=== PATIENT | male | born 1995 | race African-American/Black ===

== ENCOUNTER 2018-04-18 08:48 | Emergency (ER) | payer OTHER ==
[~2018-04-18] VITALS: Ht 165.1 cm; Wt 64.5 kg
[2018-04-18] MEDS ORDERED: FIBE625T PO (08:54)
[2018-04-18] MEDS ORDERED: COLA100C5 PO ×2 (08:54→10:33)
[2018-04-18] MEDS ORDERED: DOCUSATE SODIUM 100 MG CAP PO ONE (10:15)
[2018-04-18 10:32] VITALS: BP 118/60
--- NOTE | 2018-04-18 14:50 | ECGEPIP ---
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
== END 2018-04-18 10:40 | disposition home or self-care (01) ==
LOC: M ED 08:48
DX: R55 Syncope and collapse (principal); K59.00 Constipation, unspecified; R10.32 Left lower quadrant pain

== ENCOUNTER 2018-04-27 14:18 | Emergency (ER) | payer OTHER ==
[~2018-04-27] VITALS: Ht 165.1 cm; Wt 6.3 kg
[~2018-04-27 14:18] MED LIST: COLA100C5 PO; FIBE625T PO
--- NOTE | 2018-04-27 15:28 | REP ---
ABDOMEN FLAT AND UPRIGHT PA CHEST, THREE VIEWS: HISTORY: Constipation. Air is present in small and large intestine. There are no air fluid levels or dilated loops of intestine. There is no pneumoperitoneum. A mild amount of stool is present in the colon. IMPRESSION: Nonspecific bowel gas pattern. Electronically Signed by Last Ferreira MD 04/27/2018 03:32 P
[2018-04-27] MEDS ORDERED: BISACODYL 10 MG SUPP PR ONE (16:15)
[2018-04-27] MEDS ORDERED: MIRA3350 PO (17:54)
[2018-04-27] MEDS ORDERED: COLA100C5 PO (17:54)
[2018-04-27] MEDS ORDERED: DULC10SU2 PR (17:54)
[2018-04-27 17:58] VITALS: BP 119/56
[2018-04-27] MEDS ORDERED: MAGNESIUM CITRATE 300 ML BTL PO ONE (18:00)
== END 2018-04-27 18:03 | disposition home or self-care (01) ==
LOC: M ED 14:18
DX: K59.00 Constipation, unspecified (principal)

== ENCOUNTER 2018-12-22 14:15 | Emergency (ER) | payer OTHER ==
[~2018-12-22] VITALS: Ht 165.1 cm; Wt 65.0 kg
[~2018-12-22 14:15] MED LIST changes: +DULC10SU2 PR; +MIRA3350 PO
[2018-12-22 15:21] LABS: BASO % 0.4 % (0.0-1.0); EOS # 0.1 10^3/uL (0.0-0.5); EOS % 1.1 % (0.0-3.0); HEMATOCRIT 40.1 % (42.0-52.0); HEMOGLOBIN 13.4 g/dl (13.5-17.5); LYMPH # 2.6 10^3/uL (1.5-5.0); LYMPH % 56.5 % (24.0-44.0); MEAN CORPUSCULAR HEMOGLOBIN 22.5 pg (27.0-33.0); MEAN CORPUSCULAR HGB CONC 33.4 g/dl (32.0-36.5); MEAN CORPUSCULAR VOLUME 67.4 fl (80.0-96.0); MONO # 0.4 10^3/uL (0.0-0.8); MONO % 7.8 % (0.0-5.0); NEUTROPHILS # 1.5 10^3/uL (1.5-8.5); NEUTROPHILS % 34.2 % (36.0-66.0); PLATELET COUNT, AUTOMATED 226 10^3/uL (150-450); RED BLOOD COUNT 5.95 10^6/uL (4.30-6.10); WHITE BLOOD COUNT 4.5 10^3/uL (4.0-10.0)
--- NOTE | 2018-12-22 15:29 | REP ---
Acute abdominal series three views including PA chest and supine upright abdomen: Comparison is 04/27/2018. PA chest: Lung julian are clear. Cardiac size is normal. The gideon, mediastinum, skeletal structures are unremarkable. There is no free subdiaphragmatic air. Impression: Negative PA chest. There is no interval change. Abdomen, supine upright views: There are occasional air-fluid levels in nondistended bowel loops. Bowel gas pattern is nonspecific. There is no bowel distension or obstruction at this time. There are no calcifications. Skeletal structures and soft tissues are otherwise unremarkable. Impression: Nonspecific bowel gas pattern. Electronically Signed by Donnie Lomax MD 12/22/2018 03:21 P
[2018-12-22 15:34] LABS: ALBUMIN 3.9 GM/DL (3.2-5.2); ALT/SGPT 40 U/L (12-78); BILIRUBIN,DIRECT 0.1 MG/DL (0.0-0.2); BILIRUBIN,TOTAL 0.4 MG/DL (0.2-1.0); LIPASE 209 U/L (73-393)
[2018-12-22 15:55] LABS: BLOOD UREA NITROGEN 9 MG/DL (7-18); CALCIUM LEVEL 8.8 MG/DL (8.5-10.1); CARBON DIOXIDE LEVEL 26 MEQ/L (21-32); CHLORIDE LEVEL 102 MEQ/L (98-107); CREATININE FOR GFR 0.82 MG/DL (0.70-1.30); GLOMERULAR FILTRATION RATE > 60.0 (>60); GLUCOSE, FASTING 65 MG/DL (70-100); SODIUM LEVEL 136 MEQ/L (136-145)
[2018-12-22] MEDS ORDERED: COLA100C5 PO (16:07)
[2018-12-22 16:23] VITALS: BP 132/93
== END 2018-12-22 16:26 | disposition home or self-care (01) ==
LOC: M ED 14:15
DX: K59.9 Functional intestinal disorder, unspecified (principal)

== ENCOUNTER 2018-12-28 12:43 | Emergency (ER) | payer OTHER ==
[~2018-12-28] VITALS: Ht 165.1 cm; Wt 66.7 kg
[2018-12-28] MEDS ORDERED: MIRA3350 PO (12:49)
[2018-12-28] MEDS ORDERED: DULC10SU2 PR (12:49)
[2018-12-28 14:43] VITALS: BP 125/80
--- NOTE | 2018-12-28 14:52 | REP ---
KUB: Single view. History: Constipation. Comparison abdominal films from December 22, 2018. Findings: There is some formed stool in the ascending colon, hepatic flexure colon and splenic flexure colon segments. No colonic distension is seen. No small bowel dilation is seen. Psoas margins and flank stripes are intact. No mass or organomegaly is seen. Impression: Normal bowel gas pattern. Some formed stool in the right and left colon. No large or small bowel distension. Electronically Signed by Amari Werner MD 12/28/2018 03:37 P
== END 2018-12-28 14:55 | disposition home or self-care (01) ==
LOC: M ED 12:43
DX: K59.00 Constipation, unspecified (principal)

== ENCOUNTER 2019-01-09 15:29 | Inpatient (IN) | payer OTHER ==
[~2019-01-09] VITALS: Ht 195.6 cm; Wt 62.0 kg
[2019-01-09 16:33] LABS: HEMATOCRIT 40.2 % (42.0-52.0); HEMOGLOBIN 13.3 g/dl (13.5-17.5); MEAN CORPUSCULAR HEMOGLOBIN 22.7 pg (27.0-33.0); MEAN CORPUSCULAR HGB CONC 33.1 g/dl (32.0-36.5); MEAN CORPUSCULAR VOLUME 68.5 fl (80.0-96.0); PLATELET COUNT, AUTOMATED 201 10^3/uL (150-450); RED BLOOD COUNT 5.87 10^6/uL (4.30-6.10); WHITE BLOOD COUNT 4.5 10^3/uL (4.0-10.0)
[2019-01-09 17:16] LABS: ACETAMINOPHEN LEVEL < 2.0 UG/ML (10.0-30.0); ALBUMIN 3.7 GM/DL (3.2-5.2); ALT/SGPT 74 U/L (12-78); BILIRUBIN,DIRECT < 0.1 MG/DL (0.0-0.2); BILIRUBIN,TOTAL 0.1 MG/DL (0.2-1.0); BLOOD UREA NITROGEN 8 MG/DL (7-18); CALCIUM LEVEL 8.6 MG/DL (8.5-10.1); CARBON DIOXIDE LEVEL 27 MEQ/L (21-32); CHLORIDE LEVEL 106 MEQ/L (98-107); CREATININE FOR GFR 0.76 MG/DL (0.70-1.30); ETHYL ALCOHOL (ETHANOL) < 0.003 % (0.000-0.010); GLOMERULAR FILTRATION RATE > 60.0 (>60); GLUCOSE, FASTING 90 MG/DL (70-100); POTASSIUM SERUM 4.3 MEQ/L (3.5-5.1); SALICYLATE LEVEL < 1.7 MG/DL (5.0-30.0); SODIUM LEVEL 141 MEQ/L (136-145)
[2019-01-09 18:40] LABS: AMPHETAMINES LEVEL URINE NEGATIVE (NEGATIVE); BARBITURATES URINE NEGATIVE (NEGATIVE); BENZODIAZEPINES URINE NEGATIVE (NEGATIVE); CANNABINOIDS URINE NEGATIVE (NEGATIVE); COCAINE METABOLITE URINE NEGATIVE (NEGATIVE); METHADONE URINE NEGATIVE (NEGATIVE); OPIATES URINE NEGATIVE (NEGATIVE); PHENCYCLIDINE URINE NEGATIVE (NEGATIVE)
[2019-01-09] MEDS ORDERED: DOCU100C16 PO (19:13)
[2019-01-09] MEDS ORDERED: MIRALAX *UNIT DOSE* 17GM PACKET PO PRN (19:15)
[2019-01-09] MEDS ORDERED: traZODone 50 MG TAB PO PRN (19:15)
[2019-01-09] MEDS ORDERED: ACETAMINOPHEN TAB 650MG DOSE (2X325MG) PO PRN (19:15)
[2019-01-09] MEDS ORDERED: DOCUSATE SODIUM 100 MG CAP PO PRN (19:15)
[2019-01-09] MEDS ORDERED: MAALOX 30 ML SUSP *UDC PO PRN (19:15)
[2019-01-10 00:50] VITALS: BP 122/82
--- NOTE | 2019-01-10 10:58 | MHHPEPDOC ---
General Date Of Admission: Jan 09, 2019 Legal Status: 9.39 Chief Complaint "I'm feeling suicidal". History of Present Illness HISTORY OF THE PRESENT ILLNESS: Patient is a 23 -year-old male, AD, with no previous psych history who was sent with his Emma after being seen at [facility] expressing SI with plan to OD. Per ED, pt stated that he was depressed with SI for approximately the past 3yrs secondary to psychosocial stressors of having no friends at , no contact with family in [place] (pt born in [place], raised all over the world, came to [facility] from [place]), and ongoing medical condition (chronic constipation) for the past few years. Per ED, pt already scheduled outpatient appts with specialist at [facility] and [place] for evaluation and treatment of chronic constipation. Per ED, pt told ED display mechanic the he had a plan for SI thru OD and that he had even gone to stores looking for a medication to OD on the would not cause him harm. pt also endorsed insomnia and poor appetite in ED Psychiatric Review of Systems Depression (2 or more weeks): depressed mood, insomnia/hypersomnia (insomnia), difficulty concentrating, appetite changes, suicidal thoughts Loli (4 or more days of): denies Psychosis: denies Anxiety: situational anxiety, stressor related anxiety Anxiety/ 6 months or more of: difficulty concentrating Past Psychiatric History Previous Psychiatric Diagnosis: denies Previous Psychiatric Admissions: denies Suicide Attempts: denies Psychiatric Follow-up: denies Psychiatric medications: denies Past Medical History Medical Problems chronic constipation with evaluation and treatment at [facility] and [place] scheduled already per ED Head Injury: No Seizures: No Hospitalizations: No Surgeries: No Family Medical/Psychiatric HX Medical Problems noncontributory Psychiatric Disorders: No Addiction: No Suicide Attemps/Completions: No Addiction History denies Social History Childhood: pt born in [place], raised all over the world, came to [facility] from [place]. 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 Social Support: no one Legal: denies Marital: single, never , no kids Mental Status Examination General Appearance: well groomed, appears stated age, hospital scubs/clothing, other (walking with crunches b/c knee hurt) Build: average Demeanor: withdrawn, guarded, other (disappointed) Eye Contact: fair Activity: anxious Behavior: cooperative Speech: normal volume, reg/rate,rhythm,volume, other ( Accent) Mood: depressed, anxious, irritable Mood depressed Affect: constricted, congruent, anxious, other (annoyed) Thought Process: logical/linear, depressed, intact Thought Content (Delusions): denies SI, HI, AVH Thought Content (Other): preoccupied (constipation and BM), obsessional (constipation) Thought Content (Aggressive): none reported Perception (Hallucinations): none reported Perception (Other): none reported Cognition (Impairment of): none reported Cognition(Intelligence Est.): average Oriented: Awake, Alert, Oriented times three Insight: poor Judgment: Poor Psychosis: Denies Diagnoses Unspecified Depression R/o Adjustment d/o with depressed mood R/o Depression due to [facility] chronic constipation R/o eating d/o (stimulant laxative overuse) A-FIB/CHADSVASC A-FIB History Current/History of A-Fib/PAF?: No Assessment Pt seen and states he's been feeling suicidal for approx the past 2yrs due to his chronic constipation with stomach pain, uncomfortable, bloating. States he takes colace daily and occasionally MOM to have a BM that may take minutes for him to pass initially but not completely so he lays down and waits until he feels he can complete his BM. States he's had a colonoscopy (wnl), endoscopy(wnl), miomectromy of colon (found to be "slow." Also takes laxatives daily for the past use with increase use over the past 2yrs. States his main reason for coming to the hospital was to get treatment for his chronic constipation. 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 Pt does admit to extreme o veruse of multiple stimulant laxatives thru out the day and explained to pt that this is mostly likely the cause of his stomach pain/bloating and constipation and to stop abdominal problems he would need to ween off stimulant laxatives for intestinal/colon/anal symptoms to return to normal function. Seemed annoyed that I didn't have a "magic" treatment or pill he could take to make everything to go away. Advised unfortunately not. Encouraged to particiate in groups daily to learn coping skills for current stressor. Does not appear to need antidepressant as appears to adjustment/secondary C depression that would be resolved thru treatment of chronic constipation. Denies currently SI/HI, hallucinations, delusions. Feels safe here. Initial Treatment Plan 1. Patient was admitted on a 9.39 status. 2. Complete history was obtained. 3. With patients permission, family will be contacted and database will be expanded. 4. Patients medication regimen will be reviewed and changed accordingly. 5. Patient will be provided with protected environment. 6. Patient will be treated with individual, group, and milieu therapies. 7. Patient will receive supportive psych-education. 8. Discharge planning will commence immediately. 9. Outpatient follow-up treatment will be strongly recommended. 10. The initial treatment plan will focus initially on: * Depression. * Risk for suicide. 11. vistaril prn anxiety. limit doculax use to bid prn constipation ESTIMATED LENGTH OF STAY: 5-7 DAYS. TIME SPENT COUNSELING AND COORDINATING INITIAL CARE: 60 minutes. Vital Signs Vital Signs Date Time Temp Pulse Resp B/P (MAP) Pulse Ox O2 Delivery O2 Flow Rate FiO2 01/10/19 00:50 97.7 58 12 122/82 (95) 99 01/09/19 20:42 Room Air Laboratory Data 24H Labs Laboratory Tests 2 01/09/19 16:20: Nucleated Red Blood Cells % (auto) 0.0, Anion Gap 8, Glomerular Filtration Rate > 60.0, Calcium Level 8.6, Aspartate Amino Transf (AST/SGOT) 64H, Alanine Aminotransferase (ALT/SGPT) 74, Alkaline Phosphatase 87, Total Bilirubin 0.1L, Direct Bilirubin < 0.1, Total Protein 7.0, Albumin 3.7, Albumin/Globulin Ratio 1.12, Thyroid Stimulating Hormone (TSH) 1.910, Salicylates Level < 1.7L, Acetaminophen Level < 2.0L, Ethyl Alcohol Level < 0.003 01/09/19 17:54: Urine Amphetamines Screen NEGATIVE, Urine Benzodiazepines Screen NEGATIVE, Urine Opiates Screen NEGATIVE, Urine Methadone Screen NEGATIVE, Urine Barbiturates Screen NEGATIVE, Urine Phencyclidine Screen NEGATIVE, Urine Cocaine Metabolite Screen NEGATIVE, Urine Cannabinoids Screen NEGATIVE CBC/BMP Laboratory Tests 01/09/19 16:20 Red Blood Count 5.87, Mean Corpuscular Volume 68.5 L, Mean Corpuscular Hemoglobin 22.7 L, Mean Corpuscular Hemoglobin Concent 33.1, Red Cell Di stribution Width 14.6 H Medications Scheduled PRN Bisacodyl (Dulcolax) 10 Mg Supp.rect, 10 MG ME DAILY PRN for CONSTIPATION, (Reported) Docusate Sodium (Docusate Sodium) 100 Mg Capsule, 100 MG PO BID PRN for CONSTIPATION, (Reported) Polyethylene Glycol 3350 (Miralax) 119 Gm Powder, 17 GRAM PO DAILY PRN for CONSTIPATION, (Reported) dissolve in water Allergies Coded Allergies: No Known Allergies (Unverified , 04/18/18) PEDRO DAWN DO Jan 10, 2019 10:03 am
[2019-01-10] MEDS ORDERED: hydrOXYzine 10 MG TAB PO PRN (11:00)
[2019-01-10] MEDS: DOCUSATE SODIUM 100 MG CAP PO SCH ×2 (11:22→23:17)
--- NOTE | 2019-01-10 13:34 | HPEPDOC ---
General Date of Admission Jan 09, 2019 at 19:09 Date of Service: Jan 10, 2019 Attending Physician: FLOYD HASKINS MD Chief Complaint The patient is a 23-year-old male admitted with a reason for visit of Unspecified Depressive Disorder. Source: Patient Exam Limitations: No limitations Severity: Severe Associated Symptoms: Headaches, Loss of appetite, Increased agitation, Other (abdominal pain) History of Present Illness Date of consultation 01/10/2019: Consultation medical clearance referred by inpatient mental health unit. 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 Today he presents with complaints of left lower quadrant pain that is constant due to his chronic constipation. 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 He feels as though he has no one to trust, nor to turn, and is on the way out is suicide. He reports he has been going to this for the last 24 months, which is the entire time he has been on [employer]. 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 He is also afraid eating food on the base as it is not know what he would do to him that there is anything inside the food will make him sick as he states the pain from his constipation is unbearable. Home Medications Scheduled PRN Bisacodyl (Dulcolax) 10 Mg Supp.rect, 10 MG MD DAILY PRN for CONSTIPATION, (Reported) Docusate Sodium (Docusate Sodium) 100 Mg Capsule, 100 MG PO BID PRN for CONSTIPATION, (Reported) Polyethylene Glycol 3350 (Miralax) 119 Gm Powder, 17 GRAM PO DAILY PRN for CONSTIPATION, (Reported) dissolve in water Allergies Coded Allergies: No Known Allergies (Unverified , 04/18/18) Past Medical History Medical History See HPI Surgical History none Family History Significant Family History: No pertinent family hx Social History * Smoker: Denies Alcohol: Denies Drugs: denies Recent Travel/Sick Contacts: Denies: Recent travel, Recent sick contacts Psychosocial History: Anxiety, Decreased mood, Emotional problems, PTSD, Loose associations, Suicidal thoughts A-FIB/CHADSVASC A-FIB History Current/History of A-Fib/PAF?: No Review of Systems Constitutional: Reports: Malaise Eyes: Denies: Pain, Vision change, Conjunctivae inflammation, Eyelid inflammation, Redness, Other ENT: Reports: Head Aches Skin: Denies: Rash, Lesions, Jaundice, Bruising, Itching, Dry, Breakdown, Nail Changes, Other Pulmonary: Denies: Dyspnea, Cough, Pleuritic Chest Pain, Other Symptoms Cardiovascular: Denies: Chest Pain, Palpitations, Orthopnea, Paroxysmal Noc. Dyspnea, Edema, Lt Headedness, Other Symptoms Gastrointestinal: Reports: Nausea, Abdominal Pain, Constipation Genitourinary: Denies: Dysuria, Frequency, Incontinence, Hematuria, Retention, Other Symptoms Hematologic: Denies: Bruising, Bleeding Excessively, Petecchia, Purpura, Enlarged Lymph Nodes, Other Hematologic Endocrine: Denies: Polydipsia, Polyphagia, Polyuria, Heat Intolerance, Cold Intolerance, Other Endocrine Sx Musculoskeletal: Denies: Neck Pain, Back Pain, Shoulder Pain, Arm Pain, Hand Pain, Leg Pain, Foot Pain, Joint Pain, Muscle Pain, Spasms, Other Symptoms Neurological: Denies: Weakness, Numbness, Incoordination, Change in speech, Confusion, Seizures, Other Symptoms Psych: Reports: Anxiety, Depression, Thoughts of Self Harm Physical Examination General Exam: Positive: Alert, Cooperative Eye Exam: Positive: PERRLA, Conjunctiva & lids normal ENT Exam: Positive: Atraumatic, Mucous membr. moist/pink Neck Exam: Positive: Supple, +2 carotid pulse wo bruit Chest Exam: Positive: Clear to auscultation, Normal air movement Heart Exam: Positive: Rate Normal, Normal S1, Normal S2 Abdomen Exam: Positive: Normal bowel sounds, Tenderness (LUQ, LLQ) Extremity Exam: Positive: Tenderness (Left knee with altagracia wrap) Skin Exam: Positive: Nl turgor and temperature, Other skin issue (acne vulgaris) Neuro Exam: Positive: Other (ambulate on crutches, speech is monotone) Psych Exam: Positive: Anxiety, Oriented x 3, Other (depressed with flat affect, SI states he wants to poision himself just has not found the right poison to use) Vital Signs Vital Signs Date Time Temp Pulse Resp B/P (MAP) Pulse Ox O2 Delivery O2 Flow Rate FiO2 01/10/19 00:50 97.7 58 12 122/82 (95) 99 01/09/19 20:42 Room Air Laboratory Data Labs 24H Laboratory Tests 2 01/09/19 16:20: Nucleated Red Blood Cells % (auto) 0.0, Anion Gap 8, Glomerular Filtration Rate > 60.0, Calcium Level 8.6, Aspartate Amino Transf (AST/SGOT) 64H, Alanine Aminotransferase (ALT/SGPT) 74, Alkaline Phosphatase 87, Total Bilirubin 0.1L, Direct Bilirubin < 0.1, Total Protein 7.0, Albumin 3.7, Albumin/Globulin Ratio 1.12, Thyroid Stimulating Hormone (TSH) 1.910, Salicylates Level < 1.7L, Acetaminophen Level < 2.0L, Ethyl Alcohol Level < 0.003 01/09/19 17:54: Urine Amphetamines Screen NEGATIVE, Urine Benzodiazepines Screen NEGATIVE, Urine Opiates Screen NEGATIVE, Urine Methadone Screen NEGATIVE, Urine Barbiturates Screen NEGATIVE, Urine Phencyclidine Screen NEGATIVE, Urine Cocaine Metabolite Screen NEGATIVE, Urine Cannabinoids Screen NEGATIVE CBC/BMP Laboratory Tests 01/09/19 16:20 Red Blood Count 5.87, Mean Corpuscular Volume 68.5 L, Mean Corpuscular Hemoglobin 22.7 L, Mean Corpuscular Hemoglobin Concent 33.1, Red Cell Distribution Width 14.6 H Assessment/Plan Problems (1) Depression with suicidal ideation Status: Acute Problem Text: 23-year-old -Welsh male arrives at [facility] ED with suicidal ideation wanting to overdose by poisoning and are by 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 Today he presents with complaints of left lower quadrant pain that is constant due to his chronic constipation. He states that due to his chronic constipation, and his constant fear of being harmed within his [place] on his base. Constipation/abdominal painacute on chronic Plan MiraLAX 17 g twice a day Increase water intake. 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 Schedule appointment with RENETTA, speak with the recommended office her again request transfer of unit and or transferred to another base If appropriate speak with JAG, follow chain of command Plan / VTE VTE Prophylaxis Ordered?: No VTE Exclusion Mechanical Proph: Low Risk for VTE VTE Exclusion Pharmacological: At Low Risk for VTE ERIKA MAGAÑA Jan 10, 2019 13:34
[2019-01-10] MEDS: BISACODYL 5 MG TAB PO PRN (13:50)
[2019-01-10 18:01] VITALS: BP 121/75
[2019-01-10] MEDS: MOM 30ML SUSPENSION UDC PO PRN (18:27)
[2019-01-10] MEDS: MIRALAX *UNIT DOSE* 17GM PACKET PO SCH (23:17)
[2019-01-11 06:33] VITALS: BP 120/58
[2019-01-11] MEDS: MIRALAX *UNIT DOSE* 17GM PACKET PO SCH ×2 (08:25→20:46)
[2019-01-11] MEDS: DOCUSATE SODIUM 100 MG CAP PO SCH ×2 (08:26→20:46)
--- NOTE | 2019-01-11 09:34 | MHIPNPDOC ---
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 Per ED, pt stated that he was depressed with SI for approximately the past 3yrs secondary to psychosocial stressors of having no friends at , no contact with family in [place] (pt [place], raised [place] over the world, came to [facility] from [place]), and ongoing medical condition (chronic constipation) for the past few years. Per ED, pt already scheduled outpatient appts with specialist at [facility] and [place] for evaluation and treatment of chronic constipation. 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 pt also endorsed insomnia and poor appetite in ED. Pt seen and states he's been feeling suicidal for approx the past 2yrs due to his chronic constipation with stomach pain, uncomfortable, bloating. States he takes colace daily and occasionally MOM to have a BM that may take minutes for him to pass initially but not completely so he lays down and waits until he feels he can complete his BM. States he's had a colonoscopy (wnl), endoscopy(wnl), miomectromy of colon (found to be "slow." Also takes laxatives daily for the past use with increase use over the past 2yrs. States his main reason for coming to the hospital was to get treatment for his chronic constipation. 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 Pt does admit to extreme overuse of multiple stimulant laxatives thru out the day and explained to pt that this is mostly likely the cause of his stomach pain/bloating and constipat ion and to stop abdominal problems he would need to ween off stimulant laxatives for intestinal/colon/anal symptoms to return to normal function. Seemed annoyed that I didn't have a "magic" treatment or pill he could take to make everything to go away. Advised unfortunately not. Encouraged to participate in groups daily to learn coping skills for current stressor. Does not appear to need antidepressant as appears to adjustment/secondary C depression that would be resolved thru treatment of chronic constipation. Denies currently SI/HI, hallucinations, delusions. Feels safe here. VITAL SIGNS: See below. NEW TEST RESULTS: See below. CURRENT MEDICATIONS: See below. MENTAL STATUS EXAMINATION: General Appearance: well groomed, appears stated age, hospital scrubs/clothing, other (walking with crunches b/c knee hurt) Build: average Demeanor: withdrawn and guarded Eye Contact: fair Activity: average, amotivated (in bed thru out the day yesterday) Behavior: cooperative Speech: normal volume, reg/rate,rhythm,volume, other ( Accent) Mood: less depressed, irritable Mood depressed regarding constipation/abd discomfort Affect: less constricted, congruent Thought Process: logical/linear, depressed, intact Thought Content (Delusions): denies HI, AVH. vague SI secondary abdominal discomfort with no plan/intent Thought Content (Other): preoccupied (constipation and BM), obsessional (constipation) Thought Content (Aggressive): none reported Perception (Hallucinations): none reported Perception (Other): none reported Cognition (Impairment of): none reported Cognition(Intelligence Est.): average Oriented: Awake, Alert, Oriented times three Insight: poor Judgment: Poor Psychosis: Denies DIAGNOSES: Unspecified Depression R/o Adjustment d/o with depressed mood R/o Depression due to [facility] chronic constipation R/o eating d/o (stimulant laxative overuse) ASSESSMENT:Pt seen and states that still having some constipation and abdominal discomfort which is making him depressed with vague SI (no plan/intent) as he wants it to go away immediately. Provided supportive therapy that pt needs to practise patience to give give bowels time to recovery to normal function as he weens off laxative overuse and that there is not treatment that can make it all stop immediately. Also, spoke with pt about culture and work up in rank thru time and good work to be able to working up to having more time off work. States he slept well last night. He is not attending any groups and is isolating in bed thru out the day. Pt highly encouraged to go to groups as part of his treatment. He denies HI, hallucinations, delusions. Pt feels safe here. MANAGEMENT PLAN: continue plan Medications: vistaril 25mg q6hr prn anxiety limit doculax use to bid prn constipation TIME SPENT: 30 minutes. Vital Signs Vital Signs Date Time Temp Pulse Resp B/P (MAP) Pulse Ox O2 Delivery O2 Flow Rate FiO2 01/11/19 06:33 98.6 72 14 120/58 (78) 01/10/19 00:50 99 01/09/19 20:42 Room Air Current Medications Current Medications Medications (Trade) Dose Ordered Sig/Becky Route PRN Reason Start Time Stop Time Status Last Admin Dose Admin Acetaminophen (Tylenol Tab) 650 mg Q6HP PRN PO HEADACHE or DISCOMFORT 01/09/19 19:15 01/11/19 08:25 Al Hydrox/Mg Hydrox/Simethicone (Mylanta) 30 ml Q4HP PRN PO HEARTBURN/INDIGESTION 01/09/19 19:15 Bisacodyl (Dulcolax Tab) 5 mg BID PRN PO constipation 01/10/19 11:00 01/10/19 13:50 Docusate Sodium (Colace) 100 mg BID PO 01/10/19 09:00 01/11/19 08:26 Docusate Sodium (Colace) 100 mg DAILYPRN PRN PO CONSTIPATION 01/09/19 19:15 Home Med (Med Rec Complete!) ASDIRECTED XX 01/09/19 19:15 01/09/19 19:17 DC Hydroxyzine HCl (Atarax) 10 mg Q6HP PRN PO ANXIETY/AGITATION 01/10/19 11:00 Magnesium Hydroxide (Milk Of Magnesia) 30 ml DAILYPRN PRN PO CONSTIPATION 01/09/19 19:15 01/10/19 18:27 Polyethylene Glycol (Miralax) 1 pkt BID PO 01/10/19 21:00 01/11/19 08:25 Polyethylene Glycol (Miralax) 1 pkt DAILYPRN PRN PO CONSTIPATION 01/09/19 19:15 01/10/19 14:01 DC 01/10/19 11:23 Trazodone HCl (Desyrel) 50 mg QHSP PRN PO INSOMNIA 01/09/19 19:15 Allergies Coded Allergies: No Known Allergies (Unverified , 04/18/18) PEDRO DAWN DO Jan 11, 2019 9:34 am
[2019-01-11] MEDS: BISACODYL 5 MG TAB PO PRN (17:03)
[2019-01-11] MEDS: MOM 30ML SUSPENSION UDC PO PRN (17:04)
[2019-01-11 17:59] VITALS: BP 152/70
[2019-01-12 06:51] VITALS: BP 111/58
[2019-01-12] MEDS: MIRALAX *UNIT DOSE* 17GM PACKET PO SCH ×2 (08:07→21:00)
[2019-01-12] MEDS: DOCUSATE SODIUM 100 MG CAP PO SCH ×2 (08:07→21:00)
--- NOTE | 2019-01-12 10:46 | MHIPNPDOC ---
[facility] Progress Note Progress Note DATE OF SERVICE: 01/12/19 HISTORY: Patient is a 23 -year-old male, AD, with no previous psych history who was sent with his Emma after being seen at [facility] expressing SI with plan to OD. Per ED, pt stated that he was depressed with SI for approximately the past 3yrs secondary to psychosocial stressors of having no friends at , no contact with family in [place] (pt [place], raised all over the world, came to [facility] from [place]), and ongoing medical condition (chronic constipation) for the past few years. Per ED, pt already scheduled outpatient appts with specialist at [facility] and [place] for evaluation and treatment of chronic constipation. 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 pt also endorsed insomnia and poor appetite in ED. Pt seen and states he's been feeling suicidal for approx the past 2yrs due to hi s chronic constipation with stomach pain, uncomfortable, bloating. States he takes colace daily and occasionally MOM to have a BM that may take minutes for him to pass initially but not completely so he lays down and waits until he feels he can complete his BM. States he's had a colonoscopy (wnl), endoscopy(wnl), miomectromy of colon (found to be "slow." Also takes laxatives daily for the past use with increase use over the past 2yrs. States his main reason for coming to the hospital was to get treatment for his chronic constipation. 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 Pt does admit to extreme overuse of multiple stimulant laxatives thru out the day and explained to pt that this is mostly likely the cause of his stomach pain/bloating and constipa tion and to stop abdominal problems he would need to ween off stimulant laxatives for intestinal/colon/anal symptoms to return to normal function. Seemed annoyed that I didn't have a "magic" treatment or pill he could take to make everything to go away. Advised unfortunately not. Encouraged to participate in groups daily to learn coping skills for current stressor. Does not appear to need antidepressant as appears to adjustment/secondary [facility] depression that would be resolved thru treatment of chronic constipation. Denies currently SI/HI, hallucinations, delusions. Feels safe here. VITAL SIGNS: See below. NEW TEST RESULTS: See below. CURRENT MEDICATIONS: See below. MENTAL STATUS EXAMINATION: General Appearance: well groomed, appears stated age, hospital scrubs/clothing, other (walking with crunches b/c knee hurt) Build: average Demeanor: cooperative Eye Contact: fair Activity: average, amotivated (in bed thru out the day yesterday) Behavior: cooperative Speech: normal volume, reg/rate,rhythm,volume, other ( Accent) Mood: leuthymic, full Mood "ok" Affect: euthymic, congruent Thought Process: logical/linear, , intact Thought Content (Delusions): denies SI/HI, AVH. Thought Content (Other): preoccupied (constipation and BM), obsessional (constipation) Thought Content (Aggressive): none reported Perception (Hallucinations): none reported Perception (Other): none reported Cognition (Impairment of): none reported Cognition(Intelligence Est.): average Oriented: Awake, Alert, Oriented times three Insight: poor Judgment: Poor Psychosis: Denies DIAGNOSES: Unspecified Depression R/o Adjustment d/o with depressed mood R/o Depression due to [facility] chronic constipation R/o eating d/o (stimulant laxative overuse) R/O malingering d/o ASSESSMENT:Pt seen and states that "ok" and was socializing brightly with his roommate in his room when asked to be seen. Pt appears to be malingering mostly for treatment regarding constipation due to laxative overuse and to evade going to work as when not seen he is euthymic and full range. States he feels ready to d/c tomorrow with his Emma. He's sleeping and eating well. He is not attending any groups and advised he must attend groups as part of his treatment and can't lay in bed all day. He denies SI, passive SI today. He denies HI, hallucinations, delusions. Pt feels safe here. MANAGEMENT PLAN: d/c planning tomorrow Medications: vistaril 25mg q6hr prn anxiety limit doculax use to bid prn constipation TIME SPENT: 30 minutes. Vital Signs Vital Signs Date Time Temp Pulse Resp B/P (MAP) Pulse Ox O2 Delivery O2 Flow Rate FiO2 01/12/19 06:51 97.8 56 14 111/58 (75) 01/10/19 00:50 99 01/09/19 20:42 Room Air Current Medications Current Medications Medications (Trade) Dose Ordered Sig/Becky Route PRN Reason Start Time Stop Time Status Last Admin Dose Admin Acetaminophen (Tylenol Tab) 650 mg Q6HP PRN PO HEADACHE or DISCOMFORT 01/09/19 19:15 01/11/19 08:25 Al Hydrox/Mg Hydrox/Simethicone (Mylanta) 30 ml Q4HP PRN PO HEARTBURN/INDIGESTION 01/09/19 19:15 Bisacodyl (Dulcolax Tab) 5 mg BID PRN PO constipation 01/10/19 11:00 01/11/19 17:03 Docusate Sodium (Colace) 100 mg BID PO 01/10/19 09:00 01/12/19 08:07 Docusate Sodium (Colace) 100 mg DAILYPRN PRN PO CONSTIPATION 01/09/19 19:15 Home Med (Med Rec Complete!) ASDIRECTED XX 01/09/19 19:15 01/09/19 19:17 DC Hydroxyzine HCl (Atarax) 10 mg Q6HP PRN PO ANXIETY/AGITATION 01/10/19 11:00 Magnesium Hydroxide (Milk Of Magnesia) 30 ml DAILYPRN PRN PO CONSTIPATION 01/09/19 19:15 01/11/19 17:04 Polyethylene Glycol (Miralax) 1 pkt BID PO 01/10/19 21:00 01/12/19 08:07 Polyethylene Glycol (Miralax) 1 pkt DAILYPRN PRN PO CONSTIPATION 01/09/19 19:15 01/10/19 14:01 DC 01/10/19 11:23 Trazodone HCl (Desyrel) 50 mg QHSP PRN PO INSOMNIA 01/09/19 19:15 Allergies Coded Allergies: No Known Allergies (Unverified , 04/18/18) PEDRO DAWN DO Jan 12, 2019 10:45 am
[2019-01-12] MEDS: BISACODYL 5 MG TAB PO PRN (16:28)
[2019-01-12 18:25] VITALS: BP 115/71
[2019-01-12] MEDS ORDERED: MAGNESIUM CITRATE 300 ML BTL PO ONE (21:15)
[2019-01-12] MEDS ORDERED: MAGNESIUM CITRATE 300 ML BTL PO PRN (21:45)
--- NOTE | 2019-01-12 22:32 | IPNPDOC ---
Subjective Date Seen The patient was seen on 01/12/19. Subjective Chief Complaint/HPI Constipation. Patient should not be released until medical provider from hospitalist group is able to review labs and imaging with patient on 01/13/2019. General: Reports: Other Symptoms (decreased appetite due to fear of having abdominal pain and having the "latrine to poop); Denies: ROS Unobtainable, Chills, Night Sweats, Fatigue, Malaise, Normal Appetite Constitutional: Reports: Fatigue, Weight Loss Eyes: Reports: Pain; Denies: Vision change, Conjunctivae inflammation, Eyelid inflammation, Redness, Other ENT: Denies: Head Aches, Ear Pain, Dysphagia, Sinus Congestion, Post Nasal Drip, Sore Throat, Epistaxis, Other Symptoms Skin: Denies: Rash, Lesions, Jaundice, Bruising, Itching, Dry, Breakdown, Nail Changes, Other Pulmonary: Denies: Dyspnea, Cough, Pleuritic Chest Pain, Other Symptoms Cardiovascular: Denies: Chest Pain, Palpitations, Orthopnea, Paroxysmal Noc. Dyspnea, Edema, Lt Headedness, Other Symptoms Gastrointestinal: Reports: Constipation (did have bowel movement today with pain a little better with medication) Genitourinary: Denies: Dysuria, Frequency, Incontinence, Hematuria, Retention, Other Symptoms Hematologic: Denies: Bruising, Bleeding Excessively, Petecchia, Purpura, Enlarged Lymph Nodes, Other Hematologic Endocrine: Denies: Polydipsia, Polyphagia, Polyuria, Heat Intolerance, Cold Intolerance, Other Endocrine Sx Musculoskeletal: Reports: Leg Pain (left knee) Neurological: Denies: Weakness, Numbness, Incoordination, Change in speech, C onfusion, Seizures, Other Symptoms Psych: Reports: Anxiety (return to unit but wanted to leave the hospital never wanted to come here), Depression Objective Physical Examination General Exam: Positive: Alert, Cooperative Eye Exam: Positive: PERRLA, Conjunctiva & lids normal ENT Exam: Positive: Atraumatic, Mucous membr. moist/pink Neck Exam: Positive: Supple, +2 carotid pulse wo bruit Chest Exam: Positive: Clear to auscultation, Normal air movement Heart Exam: Positive: Rate Normal, Normal S1, Normal S2 Abdomen Exam: Positive: Normal bowel sounds, Tenderness (LUQ, LLQ) Extremity Exam: Positive: Tenderness (Left knee with altagracia wrap) Skin Exam: Positive: Nl turgor and temperature, Other skin issue (acne vulgaris) Neuro Exam: Positive: Other (ambulate on crutches, speech is monotone) Psych Exam: Positive: Anxiety, Oriented x 3, Other (depressed with flat affect, SI states he wants to poision himself just has not found the right poison to use) Assessment /Plan Assessment Constipation with left lower quadrant pain - Plan -Give patient information on food. Increase bowel movements naturally such as apples, dates, pears, foods [place] Try magnesium citrate 150 mL fall about 8 ounces of water, repeat in one hour if no bowel movement. Repeat when necessary twice a day until toilet is clear after bowel movement. Bisacodyl 10 mg by mouth scheduled dose Check labs: CBC with differential; CMP; lipase (rule out pancreatitis). Hemoglob in 13.3, hematocrit 40.2, MCV 68.5, MCH 22.7, platelets 201. Blood work results from 01/09/2019 Abdominal ultrasound complete ordered urgent patient will be fasting. 8-10 hours. Provider Will review labs with patient before he is released from mental health unit inpatient. Patient should not be released until medical provider from hospitalist group is able to review labs and imaging with patient on 01/13/2019. Abdominal pain left lower quadrant Dicyclomine 20 mg by mouth as needed Check labs: Lactic acid and LDH a.m., amylase Elevated liver enzyme AST 64 is mildly elevated on previous blood work Prognosis: Good Problems (1) Constipation Status: Acute Response to Treatment: Uncontrolled Discussed With: Patient Problem Specific Plan: Monitor Clinically Plan/VTE VTE Prophylaxis Ordered?: No VTE Exclusion Mechanical Proph: Low Risk for VTE VTE Exclusion Pharmacological: At Low Risk for VTE Plan Diagnostics: Ultrasound (scheduled for in the morning fasting) VS, I&O, 24H, Fishbone Vital Signs/I&O Vital Signs Date Time Temp Pulse Resp B/P (MAP) Pulse Ox O2 Delivery O2 Flow Rate FiO2 01/12/19 18:25 98.2 64 16 115/71 (86) 01/10/19 00:50 99 01/09/19 20:42 Room Air ERIKA MAGAÑA [facility] Jan 12, 2019 22:32
[2019-01-12] MEDS ORDERED: DICYCLOMINE 10 MG CAP PO PRN (22:45)
[2019-01-13 06:06] VITALS: BP 122/53
[2019-01-13 06:47] LABS: BASO % 0.4 % (0.0-1.0); EOS # 0.1 10^3/uL (0.0-0.5); EOS % 2.9 % (0.0-3.0); HEMATOCRIT 45.8 % (42.0-52.0); HEMOGLOBIN 14.9 g/dl (13.5-17.5); LYMPH # 2.8 10^3/uL (1.5-5.0); LYMPH % 62.9 % (24.0-44.0); MEAN CORPUSCULAR HEMOGLOBIN 22.2 pg (27.0-33.0); MEAN CORPUSCULAR HGB CONC 32.5 g/dl (32.0-36.5); MEAN CORPUSCULAR VOLUME 68.2 fl (80.0-96.0); MONO # 0.3 10^3/uL (0.0-0.8); MONO % 7.2 % (0.0-5.0); NEUTROPHILS # 1.2 10^3/uL (1.5-8.5); NEUTROPHILS % 26.6 % (36.0-66.0); PLATELET COUNT, AUTOMATED 221 10^3/uL (150-450); RED BLOOD COUNT 6.72 10^6/uL (4.30-6.10); WHITE BLOOD COUNT 4.5 10^3/uL (4.0-10.0)
[2019-01-13 07:18] LABS: ALT/SGPT 73 U/L (12-78); AMYLASE 147 U/L (25-115); BILIRUBIN,TOTAL 0.4 MG/DL (0.2-1.0); BLOOD UREA NITROGEN 7 MG/DL (7-18); CALCIUM LEVEL 9.1 MG/DL (8.5-10.1); CARBON DIOXIDE LEVEL 28 MEQ/L (21-32); CHLORIDE LEVEL 106 MEQ/L (98-107); CREATININE FOR GFR 0.88 MG/DL (0.70-1.30); GLOMERULAR FILTRATION RATE > 60.0 (>60); GLUCOSE, FASTING 78 MG/DL (70-100); LIPASE 78 U/L (73-393); POTASSIUM SERUM 4.2 MEQ/L (3.5-5.1); SODIUM LEVEL 142 MEQ/L (136-145)
[2019-01-13 07:39] LABS: LDH LACTATE DEHYDROGENASE 159 U/L (87-241)
[2019-01-13] MEDS ORDERED: HYDR-643 PO (08:43)
[2019-01-13] MEDS ORDERED: TRAZ-252 PO (08:43)
--- NOTE | 2019-01-13 08:44 | MHDSPDOC ---
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 Per ED, pt stated that he was depressed with SI for approximately the past 3yrs secondary to psychosocial stressors of having no friends at , no contact with family in [place] (pt [place], raised all over the world, came to [facility] from [place]), and ongoing medical condition (chronic constipation) for the past few years. Per ED, pt already scheduled outpatient appts with specialist at [facility] and [place] for evaluation and treatment of chronic constipation. 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 pt also endorsed insomnia and poor appetite in ED. Pt seen and states he's been feeling suicidal for approx the past 2yrs due to his chronic constipation with stomach pain, uncomfortable, bloating. States he takes colace daily and occasionally MOM to have a BM that may take minutes for him to pass initially but not completely so he lays down and waits until he feels he can complete his BM. States he's had a colonoscopy (wnl), endoscopy( wnl), miomectromy of colon (found to be "slow." Also takes laxatives daily for the past use with increase use over the past 2yrs. States his main reason for coming to the hospital was to get treatment for his chronic constipation. 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 Pt does admit to extreme overuse of multiple stimulant laxatives thru out the day and explained to pt that this is mostly likely the cause of his stomach pain/bloating and constipation and to stop abdominal problems he would need to ween off stimulant laxatives for intestinal/colon/anal symptoms to return to normal function. Seemed annoyed that I didn't have a "magic" treatment or pill he could take to make everything to go away. Advised unfortunately not. Encouraged to participate in groups daily to learn coping skills for current stressor. Does not appear to need antidepressant as appears to adjustment/secondary [facility] depression that would be resolved thru treatment of chronic constipation. Denies currently SI/HI, hallucinations, delusions. Feels safe here. 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 He was started on doculax 1 tab bid to limit his laxative use and start weening off them for bowel to recover to normal function. He was provided trazodone 50mg qhs prn insomnia. Pt found his medications beneficial and tolerated them well. He attended groups daily during his stay. His symptoms improved with treatment. On day of discharge he denied depression, anxiety, insomnia, SI/HI, hallucinations, delusions. He was discharged home after Emma meeting with follow-up at [facility]. He felt safe for discharge. DISCHARGE ASSESSMENT: Pt seen and states that "alright" and is looking forward to going home with his Emma today. Pt has been socializing brightly with his roommate in his room during his stay. He's sleeping and eating well. He is at tending groups as part of his treatment and finding helpful. He denies SI, passive SI today. He denies depression, anxiety, insomnia, SI/HI, hallucinations, delusions. Pt feels safe to be discharged home with his mEma MENTAL STATUS EXAMINATION ON DISCHARGE: General Appearance: well groomed, appears stated age, hospital scrubs/clothing, other (walking with crunches b/c knee hurt) Build: average Demeanor: cooperative Eye Contact: fair Activity: average Behavior: cooperative Speech: normal volume, reg/rate,rhythm,volume, other ( Accent) Mood: euthymic, full Mood "ok" Affect: euthymic, congruent Thought Process: logical/linear, , intact Thought Content (Delusions): denies SI/HI, AVH. Thought Content (Other): preoccupied (constipation and BM), obsessional (constipation) Thought Content (Aggressive): none reported Perception (Hallucinations): none reported Perception (Other): none reported Cognition (Impairment of): none reported Cognition(Intelligence Est.): average Oriented: Awake, Alert, Oriented times three Insight: fair Judgment: fair Psychosis: Denies MEDICATIONS ON DISCHARGE: vistaril 10mg q6hr prn anxiety trazodone 50mg qhs prn insomnia PLAN/FOLLOWUP ARRANGEMENTS: D/c home with [facility] with follow-up at [facility]. The amount of time spent in the coordination of care for this patient was approximately 30 minutes. Vital Signs/I&Os Vital Signs Date Time Temp Pulse Resp B/P (MAP) Pulse Ox O2 Delivery O2 Flow Rate FiO2 01/13/19 06:06 98.3 66 16 122/53 (76) 01/10/19 00:50 99 01/09/19 20:42 Room Air Laboratory Data Labs 24H Laboratory Tests 2 01/13/19 06:28: Immature Granulocyte % (Auto) 0.0, White Blood Count 4.5, Red Blood Count 6.72H, Hemoglobin 14.9, Hematocrit 45.8, Mean Corpuscular Volume 68.2L, Mean C orpuscular Hemoglobin 22.2L, Mean Corpuscular Hemoglobin Concent 32.5, Red Cell Distribution Width 15.5H, Platelet Count 221, Neutrophils (%) (Auto) 26.6L, Lymphocytes (%) (Auto) 62.9H, Monocytes (%) (Auto) 7.2H, Eosinophils (%) (Auto) 2.9, Basophils (%) (Auto) 0.4, Neutrophils # (Auto) 1.2L, Lymphocytes # (Auto) 2.8, Monocytes # (Auto) 0.3, Eosinophils # (Auto) 0.1, Basophils # (Auto) 0.0, Nucleated Red Blood Cells % (auto) 0.0, Anion Gap 8, Glomerular Filtration Rate > 60.0, Lactic Acid Level 1.4, Blood Urea Nitrogen 7, Creatinine 0.88, Sodium Level 142, Potassium Level 4.2, Chloride Level 106, Carbon Dioxide Level 28, Calcium Level 9.1, Aspartate Amino Transf (AST/SGOT) 30, Alanine Aminot ransferase (ALT/SGPT) 73, Lactate Dehydrogenase 159, Alkaline Phosphatase 95, Total Bilirubin 0.4, Total Protein 8.0, Albumin 4.0, Albumin/Globulin Ratio 1.00, Amylase Level 147H, Lipase 78 CBC/BMP Laboratory Tests 01/13/19 06:28 Red Blood Count 6.72 H, Mean Corpuscular Volume 68.2 L, Mean Corpuscular Hemoglobin 22.2 L, Mean Corpuscular Hemoglobin Concent 32.5, Red Cell Dist ribution Width 15.5 H, Neutrophils (%) (Auto) 26.6 L, Lymphocytes (%) (Auto) 62.9 H, Monocytes (%) (Auto) 7.2 H, Eosinophils (%) (Auto) 2.9, Basophils (%) (Auto) 0.4, Neutrophils # (Auto) 1.2 L, Lymphocytes # (Auto) 2.8, Monocytes # (Auto) 0.3, Eosinophils # (Auto) 0.1, Basophils # (Auto) 0.0, Calcium Level 9.1, Aspartate Amino Transf (AST/SGOT) 30, Alanine Aminotransferase (ALT/SGPT) 73, Lactate Dehydrogenase 159, Alkaline Phosphatase 95, Total Bilirubin 0.4, Total Protein 8.0, Albumin 4.0 Medications Scheduled PRN Bisacodyl (Dulcolax) 10 Mg Supp.rect, 10 MG [place] DAILY PRN for CONSTIPATION, (Reported) Docusate Sodium (Docusate Sodium) 100 Mg Capsule, 100 MG PO BID PRN for CONSTIPATION, (Reported) Polyethylene Glycol 3350 (Miralax) 119 Gm Powder, 17 GRAM PO DAILY PRN for CONSTIPATION, (Reported) dissolve in water Allergies Coded Allergies: No Known Allergies (Unverified , 04/18/18) PEDRO DAWN DO Jan 13, 2019 8:44 am
[2019-01-13] MEDS ORDERED: BISACODYL 5 MG TAB PO SCH (09:00)
[2019-01-13] MEDS: MIRALAX *UNIT DOSE* 17GM PACKET PO SCH (09:00)
[2019-01-13] MEDS: DOCUSATE SODIUM 100 MG CAP PO SCH (09:00)
== END 2019-01-13 09:45 | disposition home or self-care (01) | DRG 881 ==
LOC: M ED 15:29 → M ED INP 19:09 → M PSY 01-10 00:49
PROVIDERS: ADMIT Psychiatry & Neurology Addiction Medicine; ATTEND Psychiatry & Neurology Psychiatry
DX: F32.9 Major depressive disorder, single episode, unspecified (principal); F43.21 Adjustment disorder with depressed mood; F50.9 Eating disorder, unspecified; K59.09 Other constipation; F06.31 Mood disorder due to known physiological condition with depressive features; Z63.8 Other specified problems related to primary support group; Z79.899 Other long term (current) drug therapy; Z76.5 Malingerer [conscious simulation]